=== PATIENT | male | born 1995 | race Hispanic/Latino ===

== ENCOUNTER 2019-07-29 12:44 | Emergency (ER) | payer OTHER ==
[2019-07-29] MEDS ORDERED: NA BORATE/BORIC AC/H2O/NACL 120 ML OPHTH IRRIG SOLN ONE (13:06)
[2019-07-29] MEDS ORDERED: TETRACAINE HCL 0.5% 4 ML OPHTH SOLN ONE (13:06)
[2019-07-29] MEDS ORDERED: FLUORESCEIN SODIUM 1 STRIP STRIP ONE (13:07)
[2019-07-29] MEDS ORDERED: IBUPROFEN 200 MG TAB ONE (13:45)
[2019-07-29] MEDS ORDERED: IBUPROFEN 400 MG TABLET ONE (13:45)
== END 2019-07-29 14:08 | disposition home or self-care (01) ==
LOC: EDH 12:44
DX: S05.11XA Contusion of eyeball and orbital tissues, right eye, initial encounter (principal); W18.39XA Other fall on same level, initial encounter; Y93.89 Activity, other specified; Y92.89 Other specified places as the place of occurrence of the external cause; Y99.8 Other external cause status